=== PATIENT | female | born 1975 | race Caucasian/White ===

== ENCOUNTER 2020-04-27 11:46 | Inpatient (IN) | payer OTHER ==
[~2020-04-27] VITALS: Ht 170.2 cm; Wt 101.6 kg
[2020-04-27 12:58] LABS: BASOPHILS % (AUTO) 0.3 % (0.0-2.0); EOSINOPHILS % (AUTO) 1.2 % (1.0-6.0); HEMATOCRIT 34.7 % (36-46); HEMOGLOBIN 11.3 g/dL (12.0-16.0); LYMPHOCYTES # (AUTO) 0.4 K/uL (1.0-4.8); MEAN CORPUSCULAR HEMOGLOBIN 30.1 pg (26.0-34.0); MEAN CORPUSCULAR HGB CONC 32.5 G/dL (31.0-37.0); MEAN CORPUSCULAR VOLUME 93 fL (80-100); MONOCYTES # (AUTO) 0.5 K/uL (0.1-1.0); MONOCYTES % (AUTO) 4.5 % (2.0-9.0); NEUTROPHILS # (AUTO) 9.5 K/uL (1.8-7.7); PLATELET COUNT (AUTO) 340 K/uL (150-450); RED BLOOD CELL COUNT(AUTO) 3.74 MIL/uL (4.00-5.20); RED CELL DISTRIBUTION WIDTH 14.4 % (11.5-14.5)
[2020-04-27] MEDS ORDERED: ONDANSETRON HCL 4 MG/2 ML VIAL IVP ONE (13:15)
[2020-04-27] MEDS ORDERED: MORPHINE SULFATE 4 MG/ML SYRINGE IVP ONE (13:15)
[2020-04-27 13:22] LABS: ALANINE AMINOTRANSFERASE 16 U/L (12-78); ALBUMIN 4.5 g/dL (3.4-5.0); ALKALINE PHOSPHATASE 60 U/L (46-116); ANION GAP 22 mmol/L (8-16); ASPARTATE AMINOTRANSFERASE 15 U/L (15-37); BILIRUBIN,TOTAL 0.5 mg/dL (0.1-1.0); CALCIUM, TOTAL 8.5 mg/dL (8.8-10.5); CARBON DIOXIDE 18 mmol/L (22-29); CHLORIDE 98 mmol/L (98-107); CREATININE 8.19 mg/dL (0.60-1.30); GLOMERULAR FILTR. RATE CALC 5 mL/min (>60); GLUCOSE,RANDOM 95 mg/dL (70-110); HCG,QUANTITATIVE < 1 mIU/mL (0-6); LIPASE 157 U/L (73-393); POTASSIUM 4.8 mmol/L (3.5-5.1); SODIUM SERUM 138 mmol/L (136-145); TOTAL PROTEIN, SERUM 9.9 g/dL (6.4-8.2)
[2020-04-27 13:28] LABS: UREA NITROGEN, BLOOD 105 mg/dL (7-18)
[2020-04-27] MEDS ORDERED: FentaNYL CITRATE-PF 100 MCG/2 ML VIAL IVP ONE (15:15)
[2020-04-27] MEDS ORDERED: VANCOMYCIN HCL 1 GM/D5% WATER 200 ML IV ONE ×2 (16:00→23:30)
[2020-04-27] MEDS ORDERED: SODIUM CHLORIDE 0.9% 500 ML IV ONE (16:00)
[2020-04-27] MEDS ORDERED: CEFEPIME HCL 2 GM in DEXTROSE 5%-WATER 50 ML IV ONE (16:00)
[2020-04-27] MEDS ORDERED: 0.9% SODIUM CHLORIDE 10 ML SYRINGE IVP PRN (16:30)
[2020-04-27] MEDS ORDERED: ONDANSETRON HCL 4 MG/2 ML VIAL IVP PRN ×2 (16:30→22:45)
[2020-04-27] MEDS ORDERED: ACETAMINOPHEN 325 MG TABLET PO PRN ×2 (16:30→22:45)
[2020-04-27] MEDS ORDERED: MORPHINE SULFATE 2 MG/ML SYRINGE IVP PRN (17:00)
[2020-04-27 18:29] LABS: GLUCOSE,POINT OF CARE 96 MG/DL (70-110)
[2020-04-27 21:13] VITALS: BP 144/99
[2020-04-27] MEDS ORDERED: MAGNESIUM HYDROXIDE SUSPENSION 30 ML UDCUP PO PRN (22:45)
[2020-04-27] MEDS ORDERED: ZOLPIDEM TARTRATE 5 MG TABLET PO PRN (22:45)
[2020-04-27] MEDS ORDERED: BISACODYL 10 MG RECTAL RECTAL SUPPOSITORY PR PRN (22:45)
[2020-04-27] MEDS ORDERED: VANCOMYCIN HCL 1 GM/D5% WATER 200 ML IV PRN (23:30)
[2020-04-28] MEDS: HEPARIN SODIUM,PORCINE 5,000 UNITS/ML VIAL SQ SCH ×3 (00:12→16:15)
[2020-04-28] MEDS ORDERED: PNEUMOCOCCAL VACCINE POLYVALENT 0.5 ML VIAL [PPSV23] IM ONE (00:15)
[2020-04-28 05:25] VITALS: BP 129/61
[2020-04-28 07:32] LABS: ALBUMIN 3.3 g/dL (3.4-5.0); BILIRUBIN,TOTAL 0.5 mg/dL (0.1-1.0); CALCIUM, TOTAL 7.6 mg/dL (8.8-10.5); CREATININE 8.67 mg/dL (0.60-1.30); POTASSIUM 3.9 mmol/L (3.5-5.1); TOTAL PROTEIN, SERUM 7.5 g/dL (6.4-8.2)
[2020-04-28 08:01] LABS: BASOPHILS % (AUTO) 0.2 % (0.0-2.0); EOSINOPHILS % (AUTO) 0.5 % (1.0-6.0); HEMATOCRIT 26.9 % (36-46); HEMOGLOBIN 8.7 g/dL (12.0-16.0); LYMPHOCYTES # (AUTO) 0.4 K/uL (1.0-4.8); MEAN CORPUSCULAR HGB CONC 32.2 G/dL (31.0-37.0); MEAN CORPUSCULAR VOLUME 93 fL (80-100); MONOCYTES # (AUTO) 0.5 K/uL (0.1-1.0); MONOCYTES % (AUTO) 5.6 % (2.0-9.0); NEUTROPHILS # (AUTO) 8.5 K/uL (1.8-7.7); PLATELET COUNT (AUTO) 259 K/uL (150-450); RED BLOOD CELL COUNT(AUTO) 2.89 MIL/uL (4.00-5.20); RED CELL DISTRIBUTION WIDTH 14.5 % (11.5-14.5)
[2020-04-28 08:02] LABS: NEUTROPHILS % (AUTO) 89.7 % (40.0-70.0)
[2020-04-28 08:25] VITALS: BP 147/69
[2020-04-28] MEDS: DOCUSATE SODIUM 100 MG CAPSULE PO SCH ×2 (09:00→21:00)
[2020-04-28] MEDS: PANTOPRAZOLE SODIUM 40 MG DR TABLET PO SCH (09:00)
[2020-04-28] MEDS: HYDROCODONE/ACETAMINOPHEN 5-325 MG TABLET PO PRN ×3 (09:27→21:11)
[2020-04-28 16:11] VITALS: BP 145/69
[2020-04-28] MEDS: NYSTATIN 500,000 UNITS/5 ML SUSPENSION UDCUP PO SCH ×2 (18:00→18:03)
[2020-04-28 21:27] VITALS: BP 112/61
[2020-04-28] MEDS: MORPHINE SULFATE 2 MG/ML SYRINGE IVP PRN (22:23)
[2020-04-29] MEDS: NYSTATIN 500,000 UNITS/5 ML SUSPENSION UDCUP PO SCH ×5 (00:20→18:00)
[2020-04-29] MEDS: HEPARIN SODIUM,PORCINE 5,000 UNITS/ML VIAL SQ SCH ×4 (00:20→23:36)
[2020-04-29 00:32] VITALS: BP 122/56
[2020-04-29 04:00] VITALS: BP 128/62
[2020-04-29 07:01] LABS: BASOPHILS % (AUTO) 0.1 % (0.0-2.0); EOSINOPHILS % (AUTO) 2.2 % (1.0-6.0); HEMATOCRIT 25.3 % (36-46); HEMOGLOBIN 8.2 g/dL (12.0-16.0); LYMPHOCYTES # (AUTO) 0.3 K/uL (1.0-4.8); LYMPHOCYTES % (AUTO) 4.4 % (22.0-44.0); MEAN CORPUSCULAR HEMOGLOBIN 30.1 pg (26.0-34.0); MEAN CORPUSCULAR HGB CONC 32.5 G/dL (31.0-37.0); MEAN CORPUSCULAR VOLUME 93 fL (80-100); MONOCYTES # (AUTO) 0.5 K/uL (0.1-1.0); MONOCYTES % (AUTO) 6.6 % (2.0-9.0); NEUTROPHILS # (AUTO) 6.5 K/uL (1.8-7.7); PLATELET COUNT (AUTO) 249 K/uL (150-450); RED BLOOD CELL COUNT(AUTO) 2.74 MIL/uL (4.00-5.20); RED CELL DISTRIBUTION WIDTH 14.4 % (11.5-14.5)
[2020-04-29 07:12] LABS: CALCIUM, TOTAL 7.6 mg/dL (8.8-10.5); CREATININE 9.22 mg/dL (0.60-1.30); POTASSIUM 4.1 mmol/L (3.5-5.1)
[2020-04-29 07:30] LABS: NEUTROPHILS % (AUTO) 86.7 % (40.0-70.0)
[2020-04-29] MEDS: DOCUSATE SODIUM 100 MG CAPSULE PO SCH ×2 (08:16→20:57)
[2020-04-29] MEDS: PANTOPRAZOLE SODIUM 40 MG DR TABLET PO SCH (08:16)
[2020-04-29] MEDS: HYDROCODONE/ACETAMINOPHEN 5-325 MG TABLET PO PRN ×2 (08:16→12:17)
[2020-04-29 11:53] VITALS: BP 131/56
[2020-04-29] MEDS ORDERED: LACTULOSE 20 GM/30 ML SOLUTION UDCUP PO ONE (15:15)
[2020-04-29 15:57] VITALS: BP 145/79
[2020-04-29 20:00] VITALS: BP 132/71
[2020-04-29 21:57] LABS: SPECIMENTYPE,BODY FLUID PERITONEAL
[2020-04-29 23:09] LABS: APPEARANCE,SPUN,BODY FLUID HAZY (CLEAR); APPEARANCE,UNSPUN,BODY FLUID TURBID (CLEAR); COLOR,BODY FLUID PINK (LT YELLOW); TOTAL VOLUME,BODY FLUID 5 mL; WBC, BODY FLUID 66800 /cu. mm.
[2020-04-29 23:10] LABS: BASOPHILS,BODY FLUID 0 %; EOSINOPHILS,BF (ANAL) 0 %; LYMPHOCYTES,BODY FLUID 5 %; MONOCYTES,BODY FLUID 0 %; NEUTROPHILS,BODY FLUID 90 %
[2020-04-29 23:50] VITALS: BP 139/65
[2020-04-30 04:00] VITALS: BP 144/60
[2020-04-30] MEDS: HYDROCODONE/ACETAMINOPHEN 5-325 MG TABLET PO PRN (05:22)
[2020-04-30] MEDS: NYSTATIN 500,000 UNITS/5 ML SUSPENSION UDCUP PO SCH ×4 (08:15→17:38)
[2020-04-30 08:16] LABS: BASOPHILS % (AUTO) 0.3 % (0.0-2.0); EOSINOPHILS % (AUTO) 4.3 % (1.0-6.0); HEMATOCRIT 24.4 % (36-46); HEMOGLOBIN 8.1 g/dL (12.0-16.0); LYMPHOCYTES # (AUTO) 0.4 K/uL (1.0-4.8); LYMPHOCYTES % (AUTO) 6.8 % (22.0-44.0); MEAN CORPUSCULAR HEMOGLOBIN 30.6 pg (26.0-34.0); MEAN CORPUSCULAR VOLUME 93 fL (80-100); MONOCYTES # (AUTO) 0.5 K/uL (0.1-1.0); MONOCYTES % (AUTO) 8.1 % (2.0-9.0); NEUTROPHILS # (AUTO) 4.8 K/uL (1.8-7.7); NEUTROPHILS % (AUTO) 80.5 % (40.0-70.0); PLATELET COUNT (AUTO) 264 K/uL (150-450); RED BLOOD CELL COUNT(AUTO) 2.64 MIL/uL (4.00-5.20); RED CELL DISTRIBUTION WIDTH 14.6 % (11.5-14.5)
[2020-04-30] MEDS: DOCUSATE SODIUM 100 MG CAPSULE PO SCH ×2 (08:16→19:45)
[2020-04-30] MEDS: HEPARIN SODIUM,PORCINE 5,000 UNITS/ML VIAL SQ SCH ×3 (08:16→23:40)
[2020-04-30] MEDS: PANTOPRAZOLE SODIUM 40 MG DR TABLET PO SCH (08:16)
[2020-04-30 08:22] LABS: CALCIUM, TOTAL 7.6 mg/dL (8.8-10.5); CREATININE 9.46 mg/dL (0.60-1.30); MAGNESIUM 2.4 mg/dL (1.80-2.40); PHOSPHORUS 8.6 mg/dL (2.5-4.9); POTASSIUM 4.2 mmol/L (3.5-5.1); VANCOMYCIN,RANDOM 21.7 mcg/mL (25.0-50.0)
[2020-04-30 08:33] VITALS: BP 143/58
[2020-04-30] MEDS ORDERED: LACTULOSE 20 GM/30 ML SOLUTION UDCUP PO ONE (09:00)
[2020-04-30] MEDS: CALCITRIOL 0.25 MCG CAPSULE PO SCH (11:25)
[2020-04-30] MEDS ORDERED: PEG 3350/NA SULF,BICARB,CL/KCL 4000 ML SOLUTION PO ONE (13:15)
[2020-04-30 15:21] VITALS: BP 150/76
[2020-04-30] MEDS: MORPHINE SULFATE 2 MG/ML SYRINGE IVP PRN ×2 (19:45→23:45)
[2020-04-30 20:22] VITALS: BP 145/71
[2020-04-30 23:44] VITALS: BP 154/73
[2020-05-01 04:39] VITALS: BP 133/63
[2020-05-01 07:38] LABS: CALCIUM, TOTAL 7.8 mg/dL (8.8-10.5); CREATININE 9.1 mg/dL (0.60-1.30)
[2020-05-01] MEDS ORDERED: VANCOMYCIN HCL 1.5 GM in DEXTROSE 5%-WATER 250 ML IV ONE (08:00)
[2020-05-01 08:16] VITALS: BP 140/75
[2020-05-01] MEDS: EPOETIN ALFA 10,000 UNITS/ML VIAL SQ SCH (08:38)
[2020-05-01] MEDS: HEPARIN SODIUM,PORCINE 5,000 UNITS/ML VIAL SQ SCH ×3 (08:38→23:13)
[2020-05-01] MEDS: CALCITRIOL 0.25 MCG CAPSULE PO SCH (08:39)
[2020-05-01] MEDS: PANTOPRAZOLE SODIUM 40 MG DR TABLET PO SCH (08:39)
[2020-05-01] MEDS: DOCUSATE SODIUM 100 MG CAPSULE PO SCH ×2 (08:40→19:56)
[2020-05-01 11:33] VITALS: BP 159/73
[2020-05-01] MEDS: NYSTATIN 500,000 UNITS/5 ML SUSPENSION UDCUP PO SCH ×4 (12:00→23:13)
[2020-05-01 15:15] VITALS: BP 154/67
[2020-05-01 20:39] VITALS: BP 161/82
[2020-05-02] VITALS: BP 146/71
[2020-05-02 04:32] VITALS: BP 154/76
[2020-05-02] MEDS: NYSTATIN 500,000 UNITS/5 ML SUSPENSION UDCUP PO SCH ×3 (06:00→17:25)
[2020-05-02 07:21] LABS: BASOPHILS % (AUTO) 0.5 % (0.0-2.0); EOSINOPHILS % (AUTO) 4.5 % (1.0-6.0); HEMOGLOBIN 8.4 g/dL (12.0-16.0); LYMPHOCYTES # (AUTO) 0.6 K/uL (1.0-4.8); MEAN CORPUSCULAR HEMOGLOBIN 30.3 pg (26.0-34.0); MEAN CORPUSCULAR HGB CONC 33.3 G/dL (31.0-37.0); MEAN CORPUSCULAR VOLUME 91 fL (80-100); MONOCYTES # (AUTO) 0.4 K/uL (0.1-1.0); MONOCYTES % (AUTO) 6.9 % (2.0-9.0); NEUTROPHILS # (AUTO) 3.9 K/uL (1.8-7.7); NEUTROPHILS % (AUTO) 76.1 % (40.0-70.0); PLATELET COUNT (AUTO) 312 K/uL (150-450); RED BLOOD CELL COUNT(AUTO) 2.76 MIL/uL (4.00-5.20); RED CELL DISTRIBUTION WIDTH 14.1 % (11.5-14.5)
[2020-05-02 07:54] LABS: ALBUMIN 3.1 g/dL (3.4-5.0); BILIRUBIN,TOTAL 0.4 mg/dL (0.1-1.0); CALCIUM, TOTAL 7.4 mg/dL (8.8-10.5); CREATININE 8.91 mg/dL (0.60-1.30); POTASSIUM 3.9 mmol/L (3.5-5.1); TOTAL PROTEIN, SERUM 7.5 g/dL (6.4-8.2)
[2020-05-02 08:03] VITALS: BP 162/72
[2020-05-02] MEDS: PANTOPRAZOLE SODIUM 40 MG DR TABLET PO SCH (08:29)
[2020-05-02] MEDS: DOCUSATE SODIUM 100 MG CAPSULE PO SCH ×2 (08:29→20:59)
[2020-05-02] MEDS: CALCITRIOL 0.25 MCG CAPSULE PO SCH (08:29)
[2020-05-02] MEDS: HEPARIN SODIUM,PORCINE 5,000 UNITS/ML VIAL SQ SCH ×2 (08:33→16:16)
[2020-05-02 08:46] LABS: APPEARANCE,URINE CLEAR (CLEAR); BILIRUBIN,URINE NEGATIVE (NEGATIVE); GLUCOSE, URINE (UA) 100 mg/dL (NEGATIVE); KETONES,URINE NEGATIVE (NEGATIVE); LEUKOCYTE ESTERASE ,URINE NEGATIVE (NEGATIVE); NITRATE,URINE NEGATIVE (NEGATIVE); OCCULT BLOOD,URINE MODERATE (NEGATIVE); PROTEIN,URINE SEE CONFIRM (NEGATIVE); UROBILINOGEN,URINE 0.2 mg/dL (<=1.0)
[2020-05-02] MEDS: HYDROCODONE/ACETAMINOPHEN 5-325 MG TABLET PO PRN ×3 (08:53→21:04)
[2020-05-02 08:55] LABS: SULFOSALICYLIC ACID,URINE 1+ (Negative)
[2020-05-02 08:56] LABS: BACTERIA,URINE None Seen /HPF (None Seen); RBC,URINE 0-2 /HPF (0-2); SQUAMOUS EPITHELIAL CELL,UR Few /LPF (None Seen); WBC,URINE 0-2 /HPF (0-5)
[2020-05-02 11:31] VITALS: BP 156/76
[2020-05-02 15:51] VITALS: BP 173/84
[2020-05-02 20:05] VITALS: BP 181/90
[2020-05-03] MEDS: NYSTATIN 500,000 UNITS/5 ML SUSPENSION UDCUP PO SCH ×5 (00:22→23:50)
[2020-05-03] MEDS: HEPARIN SODIUM,PORCINE 5,000 UNITS/ML VIAL SQ SCH ×4 (00:24→23:49)
[2020-05-03 00:35] VITALS: BP 160/77
[2020-05-03 04:29] VITALS: BP 154/86
[2020-05-03 07:01] LABS: VANCOMYCIN,RANDOM 28.5 mcg/mL (25.0-50.0)
[2020-05-03 07:43] VITALS: BP 155/74
[2020-05-03] MEDS: DOCUSATE SODIUM 100 MG CAPSULE PO SCH ×2 (08:14→20:45)
[2020-05-03] MEDS: EPOETIN ALFA 10,000 UNITS/ML VIAL SQ SCH (08:14)
[2020-05-03] MEDS: CALCITRIOL 0.25 MCG CAPSULE PO SCH (08:14)
[2020-05-03] MEDS: PANTOPRAZOLE SODIUM 40 MG DR TABLET PO SCH (08:14)
[2020-05-03 10:20] LABS: BASOPHILS % (AUTO) 0.6 % (0.0-2.0); EOSINOPHILS % (AUTO) 5.2 % (1.0-6.0); HEMATOCRIT 26.6 % (36-46); HEMOGLOBIN 8.9 g/dL (12.0-16.0); LYMPHOCYTES # (AUTO) 0.8 K/uL (1.0-4.8); LYMPHOCYTES % (AUTO) 14.1 % (22.0-44.0); MEAN CORPUSCULAR HEMOGLOBIN 30.4 pg (26.0-34.0); MEAN CORPUSCULAR HGB CONC 33.3 G/dL (31.0-37.0); MEAN CORPUSCULAR VOLUME 91 fL (80-100); MONOCYTES # (AUTO) 0.4 K/uL (0.1-1.0); MONOCYTES % (AUTO) 6.8 % (2.0-9.0); NEUTROPHILS # (AUTO) 4.1 K/uL (1.8-7.7); NEUTROPHILS % (AUTO) 73.3 % (40.0-70.0); PLATELET COUNT (AUTO) 329 K/uL (150-450); RED BLOOD CELL COUNT(AUTO) 2.92 MIL/uL (4.00-5.20); RED CELL DISTRIBUTION WIDTH 14.2 % (11.5-14.5)
[2020-05-03 10:28] LABS: CREATININE 8.87 mg/dL (0.60-1.30); MAGNESIUM 2.2 mg/dL (1.80-2.40); PHOSPHORUS 6.1 mg/dL (2.5-4.9); POTASSIUM 3.8 mmol/L (3.5-5.1)
[2020-05-03 12:06] VITALS: BP 173/87
[2020-05-03] MEDS ORDERED: HydrALAZINE HCL 25 MG TABLET PO PRN (12:15)
[2020-05-03 15:21] VITALS: BP 167/81
[2020-05-03] MEDS: HYDROCODONE/ACETAMINOPHEN 5-325 MG TABLET PO PRN ×2 (16:31→21:41)
[2020-05-03 20:18] VITALS: BP 167/76
[2020-05-03] MEDS: HydrALAZINE HCL 25 MG TABLET PO PRN (21:38)
[2020-05-04 01:23] VITALS: BP 162/80
[2020-05-04] MEDS: HYDROCODONE/ACETAMINOPHEN 5-325 MG TABLET PO PRN ×3 (01:25→17:11)
[2020-05-04 04:20] VITALS: BP 155/76
[2020-05-04] MEDS ORDERED: SODIUM CHLORIDE 0.9% 1,000 ML IV ONE (05:30)
[2020-05-04] MEDS: NYSTATIN 500,000 UNITS/5 ML SUSPENSION UDCUP PO SCH ×4 (05:31→18:00)
[2020-05-04] MEDS ORDERED: HEPARIN SODIUM,PORCINE 1,000 UNITS/ML VIAL ONE (06:48)
[2020-05-04] MEDS ORDERED: SODIUM CHLORIDE 0.9% 0 ML ONE (06:48)
[2020-05-04] MEDS ORDERED: BUPIVACAINE HCL/PF 0.25% 30 ML VIAL ONE (06:48)
[2020-05-04] MEDS ORDERED: HEPARIN SODIUM,PORCINE 5,000 UNITS/ML VIAL ONE (06:48)
[2020-05-04] MEDS ORDERED: BACITRACIN 50,000 UNITS/VIAL ONE (06:49)
[2020-05-04] MEDS ORDERED: MEPERIDINE-PF 25 MG/ML VIAL IVP PRN (07:00)
[2020-05-04] MEDS ORDERED: HYDROmorphone 2 MG/ML SYRINGE IVP PRN (07:00)
[2020-05-04] MEDS ORDERED: FentaNYL CITRATE-PF 100 MCG/2 ML VIAL IVP PRN (07:00)
[2020-05-04] MEDS ORDERED: SODIUM CHLORIDE 0.9% 1,000 ML ONE (07:03)
[2020-05-04 07:18] LABS: GLUCOMETER DEV NAME(LOC) SDS.; GLUCOSE,POINT OF CARE 125 MG/DL (70-110)
[2020-05-04 07:27] LABS: CALCIUM, TOTAL 8.8 mg/dL (8.8-10.5); CREATININE 8.55 mg/dL (0.60-1.30); POTASSIUM 3.5 mmol/L (3.5-5.1)
[2020-05-04 07:32] LABS: PROTHROMBIN TIME 10.5 SEC (9.4-11.6)
[2020-05-04 07:41] LABS: BASOPHILS % (AUTO) 0.5 % (0.0-2.0); EOSINOPHILS % (AUTO) 4.8 % (1.0-6.0); HEMATOCRIT 30.8 % (36-46); HEMOGLOBIN 10.3 g/dL (12.0-16.0); LYMPHOCYTES # (AUTO) 1.3 K/uL (1.0-4.8); LYMPHOCYTES % (AUTO) 19.9 % (22.0-44.0); MEAN CORPUSCULAR HEMOGLOBIN 30.3 pg (26.0-34.0); MEAN CORPUSCULAR HGB CONC 33.4 G/dL (31.0-37.0); MEAN CORPUSCULAR VOLUME 91 fL (80-100); MONOCYTES # (AUTO) 0.4 K/uL (0.1-1.0); MONOCYTES % (AUTO) 5.8 % (2.0-9.0); NEUTROPHILS # (AUTO) 4.6 K/uL (1.8-7.7); PLATELET COUNT (AUTO) 411 K/uL (150-450); RED CELL DISTRIBUTION WIDTH 14.6 % (11.5-14.5)
[2020-05-04] MEDS: OXYGEN THERAPY IH SCH (08:00)
[2020-05-04] MEDS ORDERED: SUGAMMADEX SODIUM 200 MG/2 ML VIAL IVP ONE (08:30)
[2020-05-04] MEDS ORDERED: HYDROCODONE/ACETAMINOPHEN 5-325 MG TABLET PO PRN (10:00)
[2020-05-04] MEDS ORDERED: HYDROmorphone 2 MG/ML SYRINGE ONE (10:15)
[2020-05-04] MEDS: DOCUSATE SODIUM 100 MG CAPSULE PO SCH ×2 (11:06→20:50)
[2020-05-04] MEDS: CALCITRIOL 0.25 MCG CAPSULE PO SCH (11:06)
[2020-05-04] MEDS: PANTOPRAZOLE SODIUM 40 MG DR TABLET PO SCH (11:06)
[2020-05-04] MEDS: MORPHINE SULFATE 2 MG/ML SYRINGE IVP PRN ×3 (11:08→22:16)
[2020-05-04 11:37] VITALS: BP 169/86
[2020-05-04] MEDS ORDERED: LIDOCAINE/PF 2% 5 ML VIAL INJ ONE (12:00)
[2020-05-04] MEDS ORDERED: ONDANSETRON HCL 4 MG/2 ML VIAL IVP ONE (12:00)
[2020-05-04] MEDS ORDERED: DEXAMETHASONE SOD PHOS 4 MG/ML VIAL IVP ONE (12:00)
[2020-05-04] MEDS ORDERED: ALBUTEROL SULFATE HFA 90 MCG/PUFF 8 GM INHALER IH ONE (12:00)
[2020-05-04] MEDS ORDERED: PROPOFOL 1% 20 ML VIAL IVP ONE (12:00)
[2020-05-04] MEDS ORDERED: SUCCINYLCHOLINE CHLORIDE 20 MG/ML 10 ML VIAL IVP ONE (12:00)
[2020-05-04] MEDS ORDERED: NEOSTIGMINE METHYLSULFATE 1 MG/ML 10 ML VIAL IVP ONE (12:00)
[2020-05-04] MEDS ORDERED: FentaNYL CITRATE-PF 100 MCG/2 ML VIAL IVP ONE (12:00)
[2020-05-04] MEDS ORDERED: GLYCOPYRROLATE 0.2 MG/ML VIAL IM ONE (12:00)
[2020-05-04] MEDS: HydrALAZINE HCL 25 MG TABLET PO PRN (12:10)
[2020-05-04 15:35] VITALS: BP 162/83
[2020-05-04 20:00] VITALS: BP 155/84
[2020-05-04] MEDS: HEPARIN SODIUM,PORCINE 5,000 UNITS/ML VIAL SQ SCH (20:50)
[2020-05-05 00:30] VITALS: BP 147/76
[2020-05-05] MEDS: NYSTATIN 500,000 UNITS/5 ML SUSPENSION UDCUP PO SCH ×4 (01:19→17:45)
[2020-05-05 04:55] VITALS: BP 152/77
[2020-05-05] MEDS: MORPHINE SULFATE 2 MG/ML SYRINGE IVP PRN (05:53)
[2020-05-05 08:12] VITALS: BP 152/76
[2020-05-05] MEDS: CALCITRIOL 0.25 MCG CAPSULE PO SCH (08:12)
[2020-05-05] MEDS: HEPARIN SODIUM,PORCINE 5,000 UNITS/ML VIAL SQ SCH ×2 (08:12→20:38)
[2020-05-05] MEDS: PANTOPRAZOLE SODIUM 40 MG DR TABLET PO SCH (08:12)
[2020-05-05] MEDS: DOCUSATE SODIUM 100 MG CAPSULE PO SCH ×2 (08:12→20:38)
[2020-05-05] MEDS: EPOETIN ALFA 10,000 UNITS/ML VIAL SQ SCH (08:13)
[2020-05-05 16:48] VITALS: BP_SYST 138; BP_SYST 166; BP_DIAS 76; BP_DIAS 85
[2020-05-05] MEDS: HydrALAZINE HCL 25 MG TABLET PO PRN (17:58)
[2020-05-05 19:32] VITALS: BP 176/82
[2020-05-05] MEDS: HYDROCODONE/ACETAMINOPHEN 5-325 MG TABLET PO PRN (20:39)
[2020-05-05 23:11] VITALS: BP 151/74
[2020-05-06] VITALS (7 sets, daily range): BP systolic 156–181; BP diastolic 74–89
[2020-05-06] MEDS: HydrALAZINE HCL 25 MG TABLET PO PRN ×3 (05:31→20:50)
[2020-05-06] MEDS: MORPHINE SULFATE 2 MG/ML SYRINGE IVP PRN (05:31)
[2020-05-06] MEDS: NYSTATIN 500,000 UNITS/5 ML SUSPENSION UDCUP PO SCH ×3 (05:32→11:57)
[2020-05-06 07:13] LABS: BASOPHILS % (AUTO) 0.5 % (0.0-2.0); EOSINOPHILS % (AUTO) 5.2 % (1.0-6.0); HEMATOCRIT 26.3 % (36-46); HEMOGLOBIN 8.4 g/dL (12.0-16.0); LYMPHOCYTES # (AUTO) 0.9 K/uL (1.0-4.8); LYMPHOCYTES % (AUTO) 11.7 % (22.0-44.0); MEAN CORPUSCULAR HEMOGLOBIN 29.5 pg (26.0-34.0); MEAN CORPUSCULAR VOLUME 92 fL (80-100); MONOCYTES # (AUTO) 0.5 K/uL (0.1-1.0); MONOCYTES % (AUTO) 5.9 % (2.0-9.0); NEUTROPHILS # (AUTO) 5.9 K/uL (1.8-7.7); NEUTROPHILS % (AUTO) 76.7 % (40.0-70.0); PLATELET COUNT (AUTO) 356 K/uL (150-450); RED BLOOD CELL COUNT(AUTO) 2.86 MIL/uL (4.00-5.20); RED CELL DISTRIBUTION WIDTH 14.6 % (11.5-14.5)
[2020-05-06 07:16] LABS: ALBUMIN 3.3 g/dL (3.4-5.0); BILIRUBIN,TOTAL 0.3 mg/dL (0.1-1.0); CREATININE 8.23 mg/dL (0.60-1.30); POTASSIUM 3.8 mmol/L (3.5-5.1); TOTAL PROTEIN, SERUM 7.8 g/dL (6.4-8.2); VANCOMYCIN,RANDOM 17.5 mcg/mL (25.0-50.0)
[2020-05-06] MEDS ORDERED: VANCOMYCIN HCL 1.5 GM in DEXTROSE 5%-WATER 250 ML IV ONE (08:00)
[2020-05-06] MEDS: OXYGEN THERAPY IH SCH ×2 (08:00→20:00)
[2020-05-06] MEDS: HEPARIN SODIUM,PORCINE 5,000 UNITS/ML VIAL SQ SCH ×2 (08:43→20:51)
[2020-05-06] MEDS: CALCITRIOL 0.25 MCG CAPSULE PO SCH (08:44)
[2020-05-06] MEDS: DOCUSATE SODIUM 100 MG CAPSULE PO SCH ×2 (08:44→20:50)
[2020-05-06] MEDS: PANTOPRAZOLE SODIUM 40 MG DR TABLET PO SCH (08:44)
[2020-05-06] MEDS ORDERED: SODIUM CHLORIDE 0.9% 250 ML IV ONE (08:52)
[2020-05-06] MEDS ORDERED: LACTULOSE 20 GM/30 ML SOLUTION UDCUP PO ONE (10:00)
[2020-05-06] MEDS: AmLODIPine BESYLATE 10 MG TABLET PO SCH (10:30)
[2020-05-06] MEDS ORDERED: VANCOMYCIN HCL 1 GM/D5% WATER 200 ML IV SCH (11:00)
[2020-05-06] MEDS ORDERED: DIANEAL PD IP PRN (11:45)
[2020-05-06] MEDS ORDERED: VANCOMYCIN HCL IP PRN ×3 (11:45→15:30)
[2020-05-06] MEDS ORDERED: DEXTROSE IP PRN (11:45)
[2020-05-06] MEDS ORDERED: PERIT DIALYSIS NO 6 IP PRN (15:30)
[2020-05-06] MEDS ORDERED: DEX IP PRN ×2 (15:30)
[2020-05-06] MEDS ORDERED: [UNRECOGNIZED DRUG - OTHER] IP PRN (15:30)
[2020-05-07] VITALS (7 sets, daily range): BP systolic 153–173; BP diastolic 76–88
[2020-05-07] MEDS: NYSTATIN 500,000 UNITS/5 ML SUSPENSION UDCUP PO SCH ×6 (06:00→23:41)
[2020-05-07] MEDS: OXYGEN THERAPY IH SCH (08:00)
[2020-05-07] MEDS: PANTOPRAZOLE SODIUM 40 MG DR TABLET PO SCH (08:39)
[2020-05-07] MEDS: CALCITRIOL 0.25 MCG CAPSULE PO SCH (08:39)
[2020-05-07] MEDS: AmLODIPine BESYLATE 10 MG TABLET PO SCH (08:39)
[2020-05-07] MEDS: HEPARIN SODIUM,PORCINE 5,000 UNITS/ML VIAL SQ SCH ×2 (08:39→21:07)
[2020-05-07] MEDS: DOCUSATE SODIUM 100 MG CAPSULE PO SCH ×2 (08:39→21:07)
[2020-05-07] MEDS: HydrALAZINE HCL 25 MG TABLET PO PRN (12:18)
[2020-05-08] MEDS: HydrALAZINE HCL 25 MG TABLET PO PRN ×2 (00:23→05:56)
[2020-05-08 04:37] VITALS: BP 161/77
[2020-05-08] MEDS: NYSTATIN 500,000 UNITS/5 ML SUSPENSION UDCUP PO SCH ×2 (05:57→12:00)
[2020-05-08 07:34] VITALS: BP 154/79
[2020-05-08] MEDS: AmLODIPine BESYLATE 10 MG TABLET PO SCH (08:44)
[2020-05-08] MEDS: PANTOPRAZOLE SODIUM 40 MG DR TABLET PO SCH (08:44)
[2020-05-08] MEDS: EPOETIN ALFA 10,000 UNITS/ML VIAL SQ SCH (08:44)
[2020-05-08] MEDS: DOCUSATE SODIUM 100 MG CAPSULE PO SCH (08:44)
[2020-05-08] MEDS: CALCITRIOL 0.25 MCG CAPSULE PO SCH (08:44)
[2020-05-08] MEDS: HEPARIN SODIUM,PORCINE 5,000 UNITS/ML VIAL SQ SCH (08:50)
[2020-05-08] MEDS ORDERED: CARVEDILOL 12.5 MG TABLET PO ONE (09:30)
[2020-05-08] MEDS ORDERED: AMLO10TA7 PO (11:24)
== END 2020-05-08 13:40 | disposition home or self-care (01) | DRG 950 ==
LOC: EMS 11:49 → 6N 17:02 → 6S 04-30 14:23 → 4E 05-01 13:31
PROVIDERS: ADMIT Internal Medicine; ATTEND Internal Medicine
PROC: 3E1M39Z Irrigation of Peritoneal Cavity using Dialysate, Percutaneous Approach (ICD-10-PCS; 2020-04-28)
PROC: 3E1M39Z Irrigation of Peritoneal Cavity using Dialysate, Percutaneous Approach (ICD-10-PCS; 2020-04-29)
PROC: 3E1M39Z Irrigation of Peritoneal Cavity using Dialysate, Percutaneous Approach (ICD-10-PCS; 2020-05-01)
PROC: 3E1M39Z Irrigation of Peritoneal Cavity using Dialysate, Percutaneous Approach (ICD-10-PCS; 2020-05-02)
PROC: 0JPTXXZ Removal of Tunneled Vascular Access Device from Trunk Subcutaneous Tissue and Fascia, External Approach (ICD-10-PCS; 2020-05-04)
PROC: 0WPG43Z Removal of Infusion Device from Peritoneal Cavity, Percutaneous Endoscopic Approach (ICD-10-PCS; 2020-05-04)
PROC: 0DUU4JZ Supplement Omentum with Synthetic Substitute, Percutaneous Endoscopic Approach (ICD-10-PCS; 2020-05-04)
PROC: 0WHG43Z Insertion of Infusion Device into Peritoneal Cavity, Percutaneous Endoscopic Approach (ICD-10-PCS; principal; 2020-05-04 07:30)
PROC: 3E1M39Z Irrigation of Peritoneal Cavity using Dialysate, Percutaneous Approach (ICD-10-PCS; 2020-05-06)
PROC: 3E1M39Z Irrigation of Peritoneal Cavity using Dialysate, Percutaneous Approach (ICD-10-PCS; 2020-05-07)
PROC: 3E1M39Z Irrigation of Peritoneal Cavity using Dialysate, Percutaneous Approach (ICD-10-PCS; 2020-05-08)
DX: T85.71XA Infection and inflammatory reaction due to peritoneal dialysis catheter, initial encounter (principal); K65.9 Peritonitis, unspecified; I12.0 Hypertensive chronic kidney disease with stage 5 chronic kidney disease or end stage renal disease; N25.81 Secondary hyperparathyroidism of renal origin; E11.21 Type 2 diabetes mellitus with diabetic nephropathy; N18.6 End stage renal disease; T85.611A Breakdown (mechanical) of intraperitoneal dialysis catheter, initial encounter; E11.22 Type 2 diabetes mellitus with diabetic chronic kidney disease; Z99.2 Dependence on renal dialysis; D63.1 Anemia in chronic kidney disease; Y81.2 Prosthetic and other implants, materials and accessory general- and plastic-surgery devices associated with adverse incidents; E55.9 Vitamin D deficiency, unspecified; K59.00 Constipation, unspecified; Z20.828 Contact with and (suspected) exposure to other viral communicable diseases; T80.29XA Infection following other infusion, transfusion and therapeutic injection, initial encounter; Y84.1 Kidney dialysis as the cause of abnormal reaction of the patient, or of later complication, without mention of misadventure at the time of the procedure; Z28.21 Immunization not carried out because of patient refusal; K66.0 Peritoneal adhesions (postprocedural) (postinfection); Y83.8 Other surgical procedures as the cause of abnormal reaction of the patient, or of later complication, without mention of misadventure at the time of the procedure
CPT/HCPCS: 70450; 74019; 74176; 83605; 83735; 84100; 87040; 87070; 87081; 87205; 88300; 89051; G0378; J0330; J0690; J0692; J0885; J1100; J1170; J1644; J2270; J2405; J2704; J3010; J3370; J3490; J3535; J7030; J7040; J7050; J7060

== ENCOUNTER 2020-10-09 05:56 | Day surgery (SDC) | payer OTHER ==
[~2020-10-09] VITALS: Ht 170.2 cm; Wt 93.2 kg
[~2020-10-09 05:56] MED LIST: AMLO-258 PO; CYCLOPENTOLATE HCL 1% 2 ML OPHTHALMIC SOLUTION ONE; KETOROLAC TROMETHAMINE 0.5% 5 ML OPHTHALMIC SOLUTION ONE; MOXIFLOXACIN HCL 0.5% 3 ML OPHTHALMIC SOLUTION ONE; PHENYLEPHRINE HCL 2.5% 2 ML OPHTHALMIC SOLUTION ONE; SODIUM CHLORIDE 0.9% 500 ML IV ONE; TROPICAMIDE 1% 2 ML OPHTHALMIC SOLUTION ONE
[2020-10-09] MEDS ORDERED: POVIDONE-IODINE 10% 15 ML SOLUTION UD TP ONE (05:57)
[2020-10-09] MEDS ORDERED: HYALURONATE SODIUM 12 MG/ML 0.8 ML SYRINGE IO ONE (05:57)
[2020-10-09] MEDS ORDERED: NEOMYCIN/POLYMYXIN B/DEXAMETH 3.5 GM OPHTHALMIC OINTMENT OU ONE (05:57)
[2020-10-09] MEDS ORDERED: EPINEPHrine 1:1,000 [1 MG/ML] AMP IM ONE (05:57)
[2020-10-09] MEDS ORDERED: LIDOCAINE/PF 1% 2 ML VIAL IM ONE (05:57)
[2020-10-09] MEDS ORDERED: TETRACAINE HCL/PF 0.5% 4 ML OPHTHALMIC SOLUTION OU ONE (05:57)
[2020-10-09] MEDS ORDERED: PrednisoLONE ACETATE 1% 5 ML OPHTHALMIC SUSPENSION OU ONE (05:57)
[2020-10-09] MEDS ORDERED: LIDOCAINE/PF 2% 5 ML VIAL IM ONE (05:57)
[2020-10-09] MEDS ORDERED: BALANCED SALT 15 ML OPHTHALMIC IRRIG.SOLN IO ONE (05:57)
[2020-10-09] MEDS ORDERED: TETRACAINE HCL/PF 0.5% 4 ML OPHTHALMIC SOLUTION OS ONE (06:00)
[2020-10-09] MEDS: TROPICAMIDE 1% 2 ML OPHTHALMIC SOLUTION OS SCH ×3 (06:32→06:43)
[2020-10-09] MEDS: PHENYLEPHRINE HCL 2.5% 2 ML OPHTHALMIC SOLUTION OS SCH ×3 (06:32→06:43)
[2020-10-09] MEDS: CYCLOPENTOLATE HCL 1% 2 ML OPHTHALMIC SOLUTION OS SCH ×3 (06:32→06:43)
[2020-10-09] MEDS: MOXIFLOXACIN HCL 0.5% 3 ML OPHTHALMIC SOLUTION OS SCH ×3 (06:33→06:43)
[2020-10-09] MEDS: KETOROLAC TROMETHAMINE 0.5% 5 ML OPHTHALMIC SOLUTION OS SCH ×3 (06:33→06:44)
[2020-10-09] MEDS ORDERED: MIDAZOLAM HCL 5 MG/ML VIAL ONE (07:54)
== END 2020-10-09 09:40 | disposition home or self-care (01) ==
LOC: SURGERY 05:56
PROVIDERS: ATTEND Ophthalmology
DX: E11.36 Type 2 diabetes mellitus with diabetic cataract (principal); H26.8 Other specified cataract; I10 Essential (primary) hypertension; Z79.899 Other long term (current) drug therapy
CPT/HCPCS: 66984; J0171; J2250; J3490 ×3; V2632

== ENCOUNTER 2020-11-02 05:40 | Day surgery (SDC) | payer OTHER ==
[2020-11-01 12:29] LABS: COVID AG,FIA SOURCE NASOPHARYNGEAL
[~2020-11-02] VITALS: Ht 170.2 cm; Wt 100.9 kg
[~2020-11-02 05:40] MED LIST changes: +BUME2TAB5 PO; +CHOL125C2 PO; +LOSA100T58 PO; +RINGERS SOLUTION,LACTATED 0 ML IV ONE; +TETRACAINE HCL/PF 0.5% 4 ML OPHTHALMIC SOLUTION ONE
[2020-11-02] MEDS ORDERED: TETRACAINE HCL/PF 0.5% 4 ML OPHTHALMIC SOLUTION OD ONE (06:30)
[2020-11-02] MEDS ORDERED: MIDAZOLAM HCL 5 MG/ML VIAL ONE (06:36)
[2020-11-02 06:39] LABS: GLUCOMETER DEV NAME(LOC) SDS.; GLUCOSE,POINT OF CARE 94 MG/DL (70-110)
[2020-11-02] MEDS: TROPICAMIDE 1% 2 ML OPHTHALMIC SOLUTION OD SCH ×3 (06:41→06:52)
[2020-11-02] MEDS: MOXIFLOXACIN HCL 0.5% 3 ML OPHTHALMIC SOLUTION OD SCH ×3 (06:41→06:52)
[2020-11-02] MEDS: PHENYLEPHRINE HCL 2.5% 2 ML OPHTHALMIC SOLUTION OD SCH ×3 (06:41→06:52)
[2020-11-02] MEDS: KETOROLAC TROMETHAMINE 0.5% 5 ML OPHTHALMIC SOLUTION OD SCH ×3 (06:41→06:52)
[2020-11-02] MEDS: CYCLOPENTOLATE HCL 1% 2 ML OPHTHALMIC SOLUTION OD SCH ×3 (06:41→06:52)
== END 2020-11-02 08:10 | disposition home or self-care (01) ==
LOC: SURGERY 05:40
PROVIDERS: ATTEND Ophthalmology
DX: E11.36 Type 2 diabetes mellitus with diabetic cataract (principal); H25.11 Age-related nuclear cataract, right eye; I12.0 Hypertensive chronic kidney disease with stage 5 chronic kidney disease or end stage renal disease; N18.6 End stage renal disease; E11.22 Type 2 diabetes mellitus with diabetic chronic kidney disease; G47.30 Sleep apnea, unspecified; Z72.89 Other problems related to lifestyle; Z98.890 Other specified postprocedural states
CPT/HCPCS: 66984; 82962; 84703; 87426; 93005; C9803; J2250; V2632; J7120

== ENCOUNTER 2021-12-18 18:44 | Inpatient (IN) | payer OTHER ==
[~2021-12-18] VITALS: Ht 162.6 cm; Wt 124.6 kg
[~2021-12-18 18:44] MED LIST changes: -CHOL125C2 PO; +CHOL500013 PO; -CYCLOPENTOLATE HCL 1% 2 ML OPHTHALMIC SOLUTION ONE; -KETOROLAC TROMETHAMINE 0.5% 5 ML OPHTHALMIC SOLUTION ONE; -MOXIFLOXACIN HCL 0.5% 3 ML OPHTHALMIC SOLUTION ONE; -PHENYLEPHRINE HCL 2.5% 2 ML OPHTHALMIC SOLUTION ONE; -RINGERS SOLUTION,LACTATED 0 ML IV ONE; -SODIUM CHLORIDE 0.9% 500 ML IV ONE; -TETRACAINE HCL/PF 0.5% 4 ML OPHTHALMIC SOLUTION ONE; -TROPICAMIDE 1% 2 ML OPHTHALMIC SOLUTION ONE
[2021-12-18] MEDS ORDERED: SODIUM CHLORIDE 0.9% 100 ML ONE (19:55)
[2021-12-18] MEDS ORDERED: IOHEXOL 350 MG/ML 100 ML VIAL ONE (19:56)
[2021-12-18 19:59] LABS: BASOPHILS % (AUTO) 0.4 % (0.0-2.0); EOSINOPHILS % (AUTO) 2.7 % (1.0-6.0); HEMATOCRIT 33.6 % (36-46); HEMOGLOBIN 11.2 g/dL (12.0-16.0); LYMPHOCYTES # (AUTO) 0.6 K/uL (1.0-4.8); LYMPHOCYTES % (AUTO) 9.2 % (22.0-44.0); MEAN CORPUSCULAR HEMOGLOBIN 33.2 pg (26.0-34.0); MEAN CORPUSCULAR HGB CONC 33.2 G/dL (31.0-37.0); MEAN CORPUSCULAR VOLUME 100 fL (80-100); MONOCYTES # (AUTO) 0.4 K/uL (0.1-1.0); MONOCYTES % (AUTO) 6.6 % (2.0-9.0); NEUTROPHILS # (AUTO) 5.2 K/uL (1.8-7.7); NEUTROPHILS % (AUTO) 81.1 % (40.0-70.0); PLATELET COUNT (AUTO) 208 K/uL (150-450); RED BLOOD CELL COUNT(AUTO) 3.36 MIL/uL (4.00-5.20); RED CELL DISTRIBUTION WIDTH 15.3 % (11.5-14.5)
[2021-12-18 20:08] LABS: CALCIUM, TOTAL 9.3 mg/dL (8.8-10.5); CREATININE 6.67 mg/dL (0.60-1.30); POTASSIUM 4.2 mmol/L (3.5-5.1)
[2021-12-18 20:12] LABS: INR 1.1 (0.9-1.1); PROTHROMBIN TIME 11.3 SEC (9.4-11.6)
[2021-12-18 20:14] LABS: ALBUMIN 3.6 g/dL (3.4-5.0); TOTAL PROTEIN, SERUM 7.9 g/dL (6.4-8.2)
[2021-12-18] MEDS ORDERED: DEXTROSE 50%-WATER 25 GM/50 ML SYRINGE IVP PRN (20:30)
[2021-12-18] MEDS ORDERED: ONDANSETRON HCL 4 MG/2 ML VIAL IVP PRN (20:30)
[2021-12-18] MEDS ORDERED: ASPIRIN 300 MG RECTAL SUPPOSITORY PR ONE (20:30)
[2021-12-18] MEDS ORDERED: ACETAMINOPHEN 325 MG TABLET PO PRN (20:30)
[2021-12-18] MEDS ORDERED: INSULIN LISPRO 100 UNITS/ML SQ PRN (20:30)
[2021-12-18 21:27] LABS: CHOL/HDL RATIO 2.4 (3.9-5.7); THYROID STIMULATING HORMONE 5.61 uIU/mL (0.36-3.74)
[2021-12-18] MEDS ORDERED: ASPIRIN 81 MG CHEWABLE TABLET PO ONE (21:30)
[2021-12-18] MEDS: HydrALAZINE HCL 20 MG/ML VIAL IVP ONE ×2 (21:41→22:05)
[2021-12-18] MEDS: LABETALOL HCL 5 MG/ML 20 ML VIAL IVP PRN (21:43)
[2021-12-18] MEDS ORDERED: FUROSEMIDE 40 MG/4 ML VIAL IVP ONE (22:30)
[2021-12-18 22:52] VITALS: BP 179/93
[2021-12-18] MEDS: HydrALAZINE HCL 20 MG/ML VIAL IVP PRN (22:58)
[2021-12-18] MEDS: HEPARIN SODIUM,PORCINE 5,000 UNITS/ML VIAL SQ SCH (23:02)
[2021-12-18 23:13] LABS: FREE T4 (FREE THYROXINE) 1.48 ng/dL (0.76-1.46)
[2021-12-18 23:27] LABS: COVID AG,FIA SOURCE NASOPHARYNGEAL
[2021-12-19 06:46] LABS: GLUCOMETER DEV NAME(LOC) 5N.1C; GLUCOSE,POINT OF CARE 113 MG/DL (70-110)
[2021-12-19 08:31] VITALS: BP 206/99
[2021-12-19 08:57] LABS: GLUCOMETER DEV NAME(LOC) 5N.3; GLUCOSE,POINT OF CARE 112 MG/DL (70-110)
[2021-12-19] MEDS: ATORVASTATIN CALCIUM 20 MG TABLET PO SCH (09:27)
[2021-12-19] MEDS: CLOPIDOGREL BISULFATE 75 MG TABLET PO SCH (09:27)
[2021-12-19] MEDS: HEPARIN SODIUM,PORCINE 5,000 UNITS/ML VIAL SQ SCH ×2 (09:28→17:17)
[2021-12-19] MEDS: HydrALAZINE HCL 20 MG/ML VIAL IVP PRN (09:29)
[2021-12-19] MEDS: ASPIRIN 81 MG CHEWABLE TABLET PO SCH (09:32)
[2021-12-19 10:22] VITALS: BP 162/80
[2021-12-19 11:45] VITALS: BP 158/74
[2021-12-19 12:11] LABS: GLUCOMETER DEV NAME(LOC) 5N.3; GLUCOSE,POINT OF CARE 169 MG/DL (70-110)
[2021-12-19 16:05] VITALS: BP 161/87
[2021-12-19 17:42] LABS: GLUCOMETER DEV NAME(LOC) 5N.3; GLUCOSE,POINT OF CARE 141 MG/DL (70-110)
[2021-12-19] MEDS: GENTAMICIN SULFATE 0.3% OPHTHALMIC SOLUTION 5 ML TP SCH (18:00)
[2021-12-19] MEDS: VITAMIN B COMP/VIT C/FOLIC ACID CAPSULE PO SCH (18:17)
[2021-12-19 19:45] VITALS: BP 161/84
[2021-12-19 20:31] VITALS: BP 153/94
[2021-12-19 20:56] LABS: GLUCOMETER DEV NAME(LOC) 5N.3; GLUCOSE,POINT OF CARE 170 MG/DL (70-110)
[2021-12-19] MEDS ORDERED: LABETALOL HCL 100 MG TABLET PO SCH (21:00)
[2021-12-19] MEDS: BUMETANIDE 1 MG TABLET PO SCH (21:09)
[2021-12-20] VITALS (8 sets, daily range): BP systolic 152–194; BP diastolic 76–101
[2021-12-20] MEDS: HEPARIN SODIUM,PORCINE 5,000 UNITS/ML VIAL SQ SCH ×3 (00:43→16:58)
[2021-12-20] MEDS: HydrALAZINE HCL 20 MG/ML VIAL IVP PRN (01:15)
[2021-12-20 06:11] LABS: GLUCOMETER DEV NAME(LOC) 5N.1C; GLUCOSE,POINT OF CARE 143 MG/DL (70-110)
[2021-12-20 08:16] LABS: GLUCOMETER DEV NAME(LOC) 5S.2B; GLUCOSE,POINT OF CARE 132 MG/DL (70-110)
[2021-12-20] MEDS: ASPIRIN 81 MG CHEWABLE TABLET PO SCH (08:50)
[2021-12-20] MEDS: VITAMIN B COMP/VIT C/FOLIC ACID CAPSULE PO SCH (08:50)
[2021-12-20] MEDS: LOSARTAN POTASSIUM 50 MG TABLET PO SCH (08:50)
[2021-12-20] MEDS: BUMETANIDE 1 MG TABLET PO SCH ×2 (08:50→21:22)
[2021-12-20] MEDS: CLOPIDOGREL BISULFATE 75 MG TABLET PO SCH (08:50)
[2021-12-20] MEDS ORDERED: AmLODIPine BESYLATE 5 MG TABLET PO SCH (09:00)
[2021-12-20] MEDS: GENTAMICIN SULFATE 0.3% OPHTHALMIC SOLUTION 5 ML TP SCH (09:00)
[2021-12-20] MEDS ORDERED: AmLODIPine BESYLATE 10 MG TABLET PO SCH (09:00)
[2021-12-20] MEDS: CHOLECALCIFEROL (VIT D3) 5,000 [125 MCG] UNITS CAPSULE PO SCH (09:00)
[2021-12-20] MEDS: ATORVASTATIN CALCIUM 20 MG TABLET PO SCH (09:14)
[2021-12-20 11:58] LABS: SPECIMENTYPE,BODY FLUID PERITONEAL
[2021-12-20 12:41] LABS: GLUCOMETER DEV NAME(LOC) 5N.1C; GLUCOSE,POINT OF CARE 140 MG/DL (70-110)
[2021-12-20 13:12] LABS: APPEARANCE,SPUN,BODY FLUID CLEAR (CLEAR); APPEARANCE,UNSPUN,BODY FLUID HAZY (CLEAR); COLOR,BODY FLUID COLORLESS (LT YELLOW); LYMPHOCYTES,BODY FLUID 83 %; NEUTROPHILS,BODY FLUID 4 %; TOTAL VOLUME,BODY FLUID 90 mL; WBC, BODY FLUID 13 /cu. mm.
[2021-12-20 13:13] LABS: BASOPHILS,BODY FLUID 0 %; EOSINOPHILS,BF (ANAL) 0 %; MONOCYTES,BODY FLUID 13 %
[2021-12-20 16:18] LABS: CREATININE 7.04 mg/dL (0.60-1.30); POTASSIUM 4.4 mmol/L (3.5-5.1)
[2021-12-20 16:40] LABS: GLUCOMETER DEV NAME(LOC) 5N.1C; GLUCOSE,POINT OF CARE 134 MG/DL (70-110)
[2021-12-20] MEDS: LABETALOL HCL 5 MG/ML 20 ML VIAL IVP PRN (21:22)
[2021-12-20 21:42] LABS: GLUCOMETER DEV NAME(LOC) 5N.3; GLUCOSE,POINT OF CARE 159 MG/DL (70-110)
[2021-12-21 04:50] VITALS: BP 186/83
[2021-12-21] MEDS: HydrALAZINE HCL 20 MG/ML VIAL IVP PRN (04:57)
[2021-12-21 05:46] LABS: GLUCOMETER DEV NAME(LOC) 5N.1C; GLUCOSE,POINT OF CARE 141 MG/DL (70-110)
[2021-12-21 07:37] VITALS: BP 154/84
[2021-12-21] MEDS: ASPIRIN 81 MG CHEWABLE TABLET PO SCH (08:00)
[2021-12-21] MEDS: HEPARIN SODIUM,PORCINE 5,000 UNITS/ML VIAL SQ SCH ×3 (08:00→17:17)
[2021-12-21] MEDS: GENTAMICIN SULFATE 0.3% OPHTHALMIC SOLUTION 5 ML TP SCH (10:00)
[2021-12-21] MEDS: BUMETANIDE 1 MG TABLET PO SCH ×2 (10:00→21:32)
[2021-12-21] MEDS: CHOLECALCIFEROL (VIT D3) 5,000 [125 MCG] UNITS CAPSULE PO SCH (10:00)
[2021-12-21] MEDS: CLOPIDOGREL BISULFATE 75 MG TABLET PO SCH (10:28)
[2021-12-21] MEDS: VITAMIN B COMP/VIT C/FOLIC ACID CAPSULE PO SCH (10:29)
[2021-12-21] MEDS: ATORVASTATIN CALCIUM 20 MG TABLET PO SCH (10:30)
[2021-12-21] MEDS: LOSARTAN POTASSIUM 50 MG TABLET PO SCH (10:30)
[2021-12-21 12:17] VITALS: BP 156/89
[2021-12-21 12:23] LABS: CREATININE 7.21 mg/dL (0.60-1.30); POTASSIUM 4.3 mmol/L (3.5-5.1)
[2021-12-21 12:27] LABS: PHOSPHORUS 5.7 mg/dL (2.5-4.9)
[2021-12-21 17:43] VITALS: BP 153/93
[2021-12-21 19:21] LABS: GLUCOMETER DEV NAME(LOC) 5S.1; GLUCOSE,POINT OF CARE 114 MG/DL (70-110)
[2021-12-21 20:01] LABS: GLUCOMETER DEV NAME(LOC) 5N.1C; GLUCOSE,POINT OF CARE 127 MG/DL (70-110)
[2021-12-21 20:05] VITALS: BP 156/89
[2021-12-21 23:34] VITALS: BP 152/61
[2021-12-22] MEDS: HEPARIN SODIUM,PORCINE 5,000 UNITS/ML VIAL SQ SCH ×2 (00:20→09:57)
[2021-12-22 00:52] LABS: GLUCOMETER DEV NAME(LOC) 5S.1; GLUCOSE,POINT OF CARE 141 MG/DL (70-110)
[2021-12-22 03:40] VITALS: BP 149/77
[2021-12-22 07:01] LABS: GLUCOMETER DEV NAME(LOC) 5S.1; GLUCOSE,POINT OF CARE 138 MG/DL (70-110)
[2021-12-22 07:45] VITALS: BP 174/78
[2021-12-22] MEDS ORDERED: AmLODIPine BESYLATE 5 MG TABLET PO SCH (09:00)
[2021-12-22 09:45] VITALS: BP 177/80
[2021-12-22] MEDS: ASPIRIN 81 MG CHEWABLE TABLET PO SCH (09:57)
[2021-12-22] MEDS: ATORVASTATIN CALCIUM 20 MG TABLET PO SCH (09:58)
[2021-12-22] MEDS: GENTAMICIN SULFATE 0.3% OPHTHALMIC SOLUTION 5 ML TP SCH (09:58)
[2021-12-22] MEDS: VITAMIN B COMP/VIT C/FOLIC ACID CAPSULE PO SCH (09:58)
[2021-12-22] MEDS: CLOPIDOGREL BISULFATE 75 MG TABLET PO SCH (09:59)
[2021-12-22] MEDS: BUMETANIDE 1 MG TABLET PO SCH (09:59)
[2021-12-22] MEDS: LOSARTAN POTASSIUM 50 MG TABLET PO SCH (09:59)
[2021-12-22] MEDS: CHOLECALCIFEROL (VIT D3) 5,000 [125 MCG] UNITS CAPSULE PO SCH (09:59)
[2021-12-22 10:58] VITALS: BP 155/69
[2021-12-22 12:06] LABS: GLUCOMETER DEV NAME(LOC) 5N.1C; GLUCOSE,POINT OF CARE 128 MG/DL (70-110)
[2021-12-22 14:12] LABS: CALCIUM, TOTAL 9.4 mg/dL (8.8-10.5); CREATININE 7.96 mg/dL (0.60-1.30)
[2021-12-22 14:14] LABS: PHOSPHORUS 6.4 mg/dL (2.5-4.9)
[2021-12-22] MEDS ORDERED: CLOP75TA60 PO (14:49)
[2021-12-22] MEDS ORDERED: B CO1CAP6 PO (14:50)
[2021-12-22] MEDS ORDERED: SEVE800T17 PO (14:50)
[2021-12-22] MEDS ORDERED: ATOR20TA86 PO (14:51)
[2021-12-22] MEDS ORDERED: SEVELAMER CARBONATE 800 MG TABLET PO SCH (18:00)
== END 2021-12-22 15:42 | disposition home health service (06) | DRG 45 ==
LOC: EMS 18:45 → 5S 21:00
PROVIDERS: ADMIT Internal Medicine; ATTEND Internal Medicine
DX: I63.512 Cerebral infarction due to unspecified occlusion or stenosis of left middle cerebral artery (principal); K65.8 Other peritonitis; I21.A1 Myocardial infarction type 2; E87.2 Acidosis; I12.0 Hypertensive chronic kidney disease with stage 5 chronic kidney disease or end stage renal disease; N17.9 Acute kidney failure, unspecified; D63.1 Anemia in chronic kidney disease; G81.91 Hemiplegia, unspecified affecting right dominant side; N18.6 End stage renal disease; E11.22 Type 2 diabetes mellitus with diabetic chronic kidney disease; E66.9 Obesity, unspecified; I16.0 Hypertensive urgency; Z20.822 Contact with and (suspected) exposure to COVID-19; N25.81 Secondary hyperparathyroidism of renal origin; R47.01 Aphasia; R47.1 Dysarthria and anarthria; E78.5 Hyperlipidemia, unspecified; Y83.8 Other surgical procedures as the cause of abnormal reaction of the patient, or of later complication, without mention of misadventure at the time of the procedure; T85.71XA Infection and inflammatory reaction due to peritoneal dialysis catheter, initial encounter; Z79.02 Long term (current) use of antithrombotics/antiplatelets; Z68.42 Body mass index [BMI] 45.0-49.9, adult; Z99.2 Dependence on renal dialysis; Y92.89 Other specified places as the place of occurrence of the external cause
CPT/HCPCS: 70496; 70498; 70551; 71045; 80048; 80053; 80061; 82962; 83036; 83605; 84100; 84439; 84443; 84484; 84702; 85025; 85610; 85730; 86038; 86850; 86900; 86901; 87075; 87081; 87205; 89051; 90945; 92610; 93005; 93306; 93880; 97112; 97116; 97162; 97166; 97530; 97535; 99291; J0360; J1644; J1940; J3490; J7050; Q9967; 36415-L1; 36415-TC; 70450; 70450-TC; 87070